=== PATIENT | male | born 1950 | race Caucasian/White ===

== ENCOUNTER → 2019-09-12 | Outpatient (CLI) | payer MEDICARE ==
[~2019-09-12] MED LIST: PRAVACHOL20 MG PO
--- NOTE | 2019-09-12 10:39 | NUR ---
SPEECH PATHOLOGY Outpatient MBS completed as per orders. Patient was alert and cooperative and reported a sensation of globus in his sternal area occasionally when eating. He stated that it has occurred for the past 1-2 years and comes on while eating. He stated that when he relaxes and eats slowly, the feeling is relieved. No significant medical history was reported. Patient consumes a regular diet and thin liquid. Oral exam revealed presence of upper and lower partials. Lingual/labial and buccal skills were WNL in terms of strength, ROM and coordination. Volitional cough and swallow were WNL. Patient was assessed with solid food (cookie and sandwich) and thin liquid barium by cup. Oral and pharyngeal swallowing skills were WNL. Recommend he continue with present diet with safety strategies such as eating slowly, small bites/sips and chewing thoroughly. Patient was encouraged to follow up with his physician for GI consult if symptoms continue or worsen, to r/o esophageal issues. He verbalized undertanding of all information provided. Dictated report to follow. Thank you for this referral. JOSELUIS HOLLINGSWORTH [facility] COORDINATOR
== END | disposition home or self-care (01) ==
LOC: RAD/SH 09:37
DX: M94.0 Chondrocostal junction syndrome [Tietze] (principal); R07.89 Other chest pain

== ENCOUNTER → 2019-09-14 | Outpatient (CLI) | payer MEDICARE ==
[2019-09-14 08:29] LABS: HEMATOCRIT 45.7 % (42.0-52.0); HEMOGLOBIN 15.3 g/dl (14.0-18.0); MEAN CELL VOLUME 92.5 fl (80.0-94.0); MEAN CORPUSCULAR HGB CONC 33.5 g/dl (33.0-37.0); MEAN PLATELET VOLUME 10.5 fl (9.6-12.3); RED BLOOD COUNT 4.94 10*6/uL (4.50-5.90); RED CELL DISTRI WIDTH 11.8 % (0-14.5)
[2019-09-14 09:04] LABS: ALBUMIN 3.8 gm/dl (3.1-4.5); ALKALINE PHOSPHATASE 78 U/L (45-117); BUN 15 mg/dl (7-24); CHLORIDE 107 mmol/L (98-107); CHOLESTEROL 173 mg/dL (<200); CREATININE 0.98 mg/dL (0.70-1.30); HDL CHOLESTEROL 41 mg/dl (40-60); LDL CHOLESTEROL 95 mg/dL (9-159); POTASSIUM 3.9 mmol/L (3.5-5.1); SGOT/AST 24 IU/L (3-35); SGPT/ALT 33 U/L (12-78); SODIUM 141 mmol/L (136-145); TOTAL PROTEIN 6.4 gm/dL (6.4-8.2); TRIGLYCERIDES 183 mg/dl (<150); VLDL CHOLESTEROL 37 mg/dL (6-40)
== END | disposition home or self-care (01) ==
LOC: LAB 08:08
PROVIDERS: Physician Assistant
DX: Z12.5 Encounter for screening for malignant neoplasm of prostate (principal); M94.0 Chondrocostal junction syndrome [Tietze]; E78.00 Pure hypercholesterolemia, unspecified; R74.8 Abnormal levels of other serum enzymes; R13.10 Dysphagia, unspecified

== ENCOUNTER → 2019-09-17 | Outpatient (CLI) | payer MEDICARE ==
--- NOTE | 2019-09-17 10:06 | NUR ---
INFORMED SIGNED CONSENT OBTAINED FOR CGXT WITH DR HARPER. RESTING EKG NSR HR 60 T WAVE INVERSION IN AVR AND BP 132/64 IN SUPINE POSITION, STANDING HR 65 BP 126/60. PT COMPLETED 6:00 MINUTES OF A ADA PROTOCOL WITH PT COMPLETING STAGE II AT 2.5 MPH AND A 12% GRADE. PT REACHED A PEAK HR OF 139 WHICH REPRESETS 90% OF PREDICTED MAXIMUM AND A PEAK BP OF 1908/80. RARE PVC NOTED, NON DIAGNOSTIC ST CHANGES SEEN. LAST RECOVERY HR OF 95 BP 164/78. PT IN STABLE CONDITION, AWAITING NUCLEAR IMAGES.
== END | disposition home or self-care (01) ==
LOC: CARD 00:27
DX: I25.89 Other forms of chronic ischemic heart disease (principal); M94.0 Chondrocostal junction syndrome [Tietze]; E78.00 Pure hypercholesterolemia, unspecified; R74.8 Abnormal levels of other serum enzymes; R07.9 Chest pain, unspecified

== ENCOUNTER → 2020-03-10 | Outpatient (CLI) | payer MEDICARE | END | disposition home or self-care (01) | LOC: CARD 07:54 | DX: I25.10 Atherosclerotic heart disease of native coronary artery without angina pectoris (principal); E78.00 Pure hypercholesterolemia, unspecified; R00.1 Bradycardia, unspecified ==

== ENCOUNTER → 2021-05-06 | Outpatient (CLI) | payer MEDICARE ==
[2021-05-06 08:46] LABS: ALBUMIN 3.5 gm/dl (3.1-4.5); TOTAL PROTEIN 6.7 gm/dL (6.4-8.2)
== END | disposition home or self-care (01) ==
LOC: LAB 07:19 → US 07:30
PROVIDERS: ATTEND Physician Assistant
DX: K80.20 Calculus of gallbladder without cholecystitis without obstruction (principal); R74.8 Abnormal levels of other serum enzymes

== ENCOUNTER 2021-10-11 14:18 | Emergency (ER) | payer MEDICARE ==
[~2021-10-11] VITALS: Ht 177.8 cm; Wt 88.5 kg
[2021-10-11] MEDS ORDERED: LIPITOR80 MG PO (14:35)
[2021-10-11] MEDS ORDERED: ASPIRIN ADULT L81 M1 PO (14:35)
[2021-10-11] MEDS ORDERED: NORVASC2.5 MG PO (14:35)
== END 2021-10-11 16:25 | disposition home or self-care (01) ==
LOC: ED 14:18
DX: S09.90XA Unspecified injury of head, initial encounter (principal); Z91.040 Latex allergy status; Z79.899 Other long term (current) drug therapy; Z79.82 Long term (current) use of aspirin; Z98.890 Other specified postprocedural states; W00.0XXA Fall on same level due to ice and snow, initial encounter; Y93.89 Activity, other specified; Y92.89 Other specified places as the place of occurrence of the external cause; Y99.8 Other external cause status